=== PATIENT | male | born 1960 | race Caucasian/White ===

== ENCOUNTER 2017-11-15 13:05 | Day surgery (SDC) | payer OTHER ==
[2017-11-15] MEDS ORDERED: MIDAZOLAM 1 MG/ML 2 ML INJ ×2 (15:35)
[2017-11-15] MEDS ORDERED: FENTAnyl 50 MCG/ML VIAL (15:36)
== END 2017-11-15 15:20 | disposition home or self-care (01) ==
LOC: GIL 13:05
DX: Z12.11 Encounter for screening for malignant neoplasm of colon (principal); K51.90 Ulcerative colitis, unspecified, without complications; E78.5 Hyperlipidemia, unspecified
CPT/HCPCS: 45380; 87177; 88305